=== PATIENT | female | born 1990 | race African-American/Black ===

== ENCOUNTER 2017-02-12 21:46 | Emergency (ER) | payer MEDICAID ==
[2014-03-18 09:55] VITALS: BMI 24.2
[~2017-02-12 21:46] MED LIST: HYDROCODONE-APA1 TAB PO; IBUPROFEN600 MG PO; PERCOCET 5-3251 TAB PO
== END 2017-02-12 23:49 | disposition home or self-care (01) ==
LOC: D.ER 21:46
DX: J02.9 Acute pharyngitis, unspecified (principal)

== ENCOUNTER 2017-04-28 17:11 | Emergency (ER) | payer MEDICAID ==
[2014-03-18 09:55] VITALS: BMI 24.2
== END 2017-04-28 19:02 | disposition home or self-care (01) ==
LOC: D.ER 17:11
DX: J20.9 Acute bronchitis, unspecified (principal); J01.90 Acute sinusitis, unspecified

== ENCOUNTER 2017-11-11 18:27 | Emergency (ER) | payer MEDICAID ==
[2014-03-18 09:55] VITALS: BMI 24.2
== END 2017-11-11 18:30 | disposition left against medical advice (07) ==
LOC: D.ER 18:27
DX: R42 Dizziness and giddiness (principal)

== ENCOUNTER 2018-07-07 07:42 | Emergency (ER) | payer BC ==
[~2018-07-07] VITALS: Ht 167.6 cm; Wt 111.4 kg
[2018-07-07 07:51] VITALS: BP 135/67; Ht 167.6 cm; Wt 111.4 kg
[2018-07-07 10:16] LABS: CALC OSMOLALITY 278 mosm/kg (275-300); CALCIUM 9.5 mg/dL (8.5-10.1); CARBON DIOXIDE 26.6 mmol/L (21.0-32.0); CHLORIDE - SERUM 104 mmol/L (98-107); CREATININE - SERUM 0.8 mg/dL (0.6-1.3); GLUCOSE 90 mg/dL (74-106); POTASSIUM - SERUM 3.7 mmol/L (3.5-5.1); SODIUM 139 mmol/L (136-145); UREA NITROGEN 15 mg/dL (7-18); eGFR NON AFRICAN AMERICAN 90 mL/min (90-120)
[2018-07-07 10:41] LABS: BASOPHILS 0.2 % (0-2); EOSINOPHILS 3.7 % (0-7); IMMATURE GRANULOCYTES 0.2 % (0-5); LYMPHOCYTES 35.6 % (15-50); MCH 30.1 pg (26.0-34.0); MCHC 33.3 g/dL (31.0-37.0); MCV 90.3 fL (80.0-100.0); MEAN PLATELET VOLUME 12.3 fL (7.4-10.4); NEUTROPHILS 53.3 % (40-80); PLATELET COUNT 222 10x3/uL (130-400); RBC 4.32 10x6/uL (4.00-5.40); RDW 13.7 % (11.5-14.5)
== END 2018-07-07 11:05 | disposition home or self-care (01) ==
LOC: D.ER 07:42
PROVIDERS: Emergency Medicine
DX: R55 Syncope and collapse (principal); R53.83 Other fatigue